=== PATIENT | female | born 1985 | race Hispanic/Latino ===

== ENCOUNTER 2020-09-18 16:20 | Outpatient (CLI) | payer BC | END 2020-09-18 16:21 | disposition home or self-care (01) | LOC: CSHLAB 16:20 | PROVIDERS: ATTEND Obstetrics & Gynecology | DX: Z01.812 Encounter for preprocedural laboratory examination (principal); Z20.822 Contact with and (suspected) exposure to COVID-19; N92.0 Excessive and frequent menstruation with regular cycle; Z80.41 Family history of malignant neoplasm of ovary | CPT/HCPCS: 84703; 85027; 86850; 86900; 86901; 87635; U0003; U0005 ==

== ENCOUNTER 2020-09-18 16:30 | Inpatient (IN) | payer BC ==
[2020-09-18 17:12] LABS: Hemoglobin 11.9 g/dL (12.0-15.5); Mean Corpuscular HGB CONC 32.1 g/dL (32.0-36.0); Mean Corpuscular Hemoglobin 27.9 pg (27.0-33.0); Mean Corpuscular Volume 87.1 fl (81.6-98.3); Mean Platelet Volume 9.6 fl (7.4-10.4); Platelet Count 354 10x3/uL (150-450); RBC Distribution Width 12.8 % (11.5-14.5); Red Blood Cell (RBC) Count 4.26 10x6/uL (3.90-5.03); White Blood Cell (WBC) Count 7.8 10x3/uL (3.5-10.5)
[2020-09-18 17:18] LABS: BHCG - Serum Negative (NEGATIVE); Pregs Control Background? CLEAR/WHITE (CLR/WHITE); Pregs Control Bar Appear? YES (CONTROL BAR)
[2020-09-19 04:29] LABS: SARS-CoV-2 PCR by NAA Not Detected (NotDetected)
[2020-09-19 14:54] VITALS: BMI 32.1
[2020-09-23] MEDS ORDERED: Gabapentin 300 MG CAP ONE (08:29)
[2020-09-23] MEDS ORDERED: CeleCOXIB 100 MG CAP ONE (08:29)
[2020-09-23] MEDS ORDERED: Famotidine/PF 20 mg/2ml Vial ONE (08:29)
[2020-09-23] MEDS ORDERED: Scopolamine 1.5 mg/72 hour Patch ONE (09:25)
[2020-09-23] MEDS ORDERED: Ondansetron PF 4 MG/2 ML Vial ONE (09:25)
[2020-09-23] MEDS ORDERED: Bupivacaine PF 0.5% 30 ML VIAL ONE (10:12)
[2020-09-23] MEDS ORDERED: EPINEPHrine 1 MG/ML AMP ONE (10:13)
[2020-09-23] MEDS ORDERED: SUGAMMADEX SODIUM 500 MG/5 ML VIAL ONE (10:27)
[2020-09-23] MEDS ORDERED: Fentanyl 100 MCG/2 ML VIAL ONE ×4 (10:32→13:24)
[2020-09-23] MEDS ORDERED: PROPOFOL 20 ML ONE ×2 (10:32→10:59)
[2020-09-23] MEDS ORDERED: Rocuronium Bromide 10 MG/ML (10ML VIAL) ONE (10:33)
[2020-09-23] MEDS ORDERED: Lidocaine 1% PF 5 ML VIAL ONE (10:33)
[2020-09-23] MEDS ORDERED: Promethazine HCl 25 MG/ML VIAL SLOW IVP PRN (12:50)
[2020-09-23] MEDS ORDERED: HYDROmorphone 2 MG/ML VIAL SLOW IVP PRN (12:50)
[2020-09-23] MEDS ORDERED: Promethazine HCl 25 MG/ML VIAL IM PRN (12:50)
[2020-09-23] MEDS ORDERED: Meperidine HCl/PF 25 MG/ML VIAL SLOW IVP PRN (12:50)
[2020-09-23] MEDS ORDERED: HYDROmorphone 0.5 MG/0.5 ML SYRINGE ONE ×2 (13:57→14:09)
[2020-09-23] MEDS ORDERED: Simethicone Chewable 80 MG TAB PO PRN (15:46)
[2020-09-23] MEDS ORDERED: diphenhydrAMINE 25 MG CAP PO PRN (15:46)
[2020-09-23] MEDS ORDERED: Zolpidem Tartrate 5 MG TAB PO PRN (15:46)
[2020-09-23] MEDS ORDERED: Bisacodyl 10 MG SUPP PR PRN (15:46)
[2020-09-23] MEDS: Ketorolac Tromethamine 30 MG/ML VIAL IVP SCH ×2 (15:59→22:09)
[2020-09-23] MEDS ORDERED: HYDROmorphone HCL/PF 10 MG in Sodium Chloride 0.9% 49 ML IVPB PRN (16:01)
[2020-09-23] MEDS: Simethicone Chewable 80 MG TAB PO PRN (22:11)
[2020-09-23] MEDS: Sodium Chloride 0.9% 1,000 ML IV SCH (23:46)
[2020-09-23] MEDS: Gabapentin 300 MG CAP PO SCH (23:46)
[2020-09-24] MEDS: Ketorolac Tromethamine 30 MG/ML VIAL IVP SCH ×4 (03:26→22:03)
[2020-09-24] MEDS: Ondansetron PF 4 MG/2 ML Vial IVP PRN ×3 (03:26→22:10)
[2020-09-24] MEDS: Sodium Chloride 0.9% 1,000 ML IV SCH ×3 (03:33→17:27)
[2020-09-24 05:03] LABS: Hemoglobin 10.3 g/dL (12.0-15.5); Mean Corpuscular HGB CONC 32.3 g/dL (32.0-36.0); Mean Corpuscular Hemoglobin 28.2 pg (27.0-33.0); Mean Corpuscular Volume 87.4 fl (81.6-98.3); Mean Platelet Volume 9.4 fl (7.4-10.4); Platelet Count 333 10x3/uL (150-450); RBC Distribution Width 12.6 % (11.5-14.5); Red Blood Cell (RBC) Count 3.65 10x6/uL (3.90-5.03); White Blood Cell (WBC) Count 10.1 10x3/uL (3.5-10.5)
[2020-09-24] MEDS: Simethicone Chewable 80 MG TAB PO PRN ×3 (08:58→22:02)
[2020-09-24] MEDS: Gabapentin 300 MG CAP PO SCH ×2 (09:06→20:57)
[2020-09-24] MEDS ORDERED: HYDROcodone/Acetaminophen 5/325 mg Tablet PO PRN (14:39)
[2020-09-24] MEDS: HYDROcodone/Acetaminophen 5/325 mg Tablet PO PRN ×2 (15:36→20:56)
[2020-09-24] MEDS ORDERED: traZODone HCl 50 MG TAB PO PRN (22:00)
[2020-09-25] MEDS: HYDROcodone/Acetaminophen 5/325 mg Tablet PO PRN ×5 (01:09→22:46)
[2020-09-25] MEDS: Sodium Chloride 0.9% 1,000 ML IV SCH ×5 (01:10→22:14)
[2020-09-25] MEDS: Ketorolac Tromethamine 30 MG/ML VIAL IVP SCH ×4 (04:29→22:48)
[2020-09-25] MEDS: Ondansetron PF 4 MG/2 ML Vial IVP PRN ×2 (04:44→18:03)
[2020-09-25] MEDS: Simethicone Chewable 80 MG TAB PO PRN (06:33)
[2020-09-25] MEDS: Gabapentin 300 MG CAP PO SCH ×2 (09:16→22:06)
[2020-09-25] MEDS ORDERED: Bisacodyl 10 MG SUPP PR PRN (17:18)
[2020-09-25] MEDS ORDERED: Tamsulosin HCl 0.4 MG CAP PO SCH (17:30)
[2020-09-25] MEDS ORDERED: Ibuprofen 600 MG TAB PO PRN (22:57)
[2020-09-26] MEDS: Ondansetron PF 4 MG/2 ML Vial IVP PRN (00:18)
[2020-09-26] MEDS: Sodium Chloride 0.9% 1,000 ML IV SCH ×2 (03:27→07:59)
[2020-09-26 07:10] LABS: Anion Gap 9 mmol/L (10-20); BUN (Urea Nitrogen) 8 mg/dL (7.0-18.7); Calc. Creatinine Clearance 210 mL/min (70-130); Calcium 8.1 mg/dL (7.8-10.44); Carbon Dioxide 27 mmol/L (22-29); Chloride 108 mmol/L (98-107); Glucose 91 mg/dL (70-105); Potassium 4.1 mmol/L (3.5-5.1); Sodium 140 mmol/L (136-145)
[2020-09-26 07:28] LABS: #Eosinphils 0.2 10x3/uL (0.0-0.5); #Monocytes 0.6 10x3/uL (0.0-1.1); #Neutrophils 4.5 10x3/uL (1.5-8.4); %Basophils 0.4 % (0.0-2.0); %Eosinophils 2.9 % (0.0-6.0); %Lymphocytes 32.6 % (18.0-47.0); %Neutrophils 56.7 % (40.0-75.0); Hemoglobin 10.1 g/dL (12.0-15.5); Mean Corpuscular HGB CONC 31.4 g/dL (32.0-36.0); Mean Corpuscular Hemoglobin 27.9 pg (27.0-33.0); Mean Platelet Volume 9.9 fl (7.4-10.4); Platelet Count 322 10x3/uL (150-450); RBC Distribution Width 13.1 % (11.5-14.5); Red Blood Cell (RBC) Count 3.62 10x6/uL (3.90-5.03); White Blood Cell (WBC) Count 7.9 10x3/uL (3.5-10.5)
[2020-09-26] MEDS: Gabapentin 300 MG CAP PO SCH (07:59)
[2020-09-26 08:16] VITALS: BP 106/61; TEMP 98.9
[2020-09-26] MEDS ORDERED: Tamsulosin HCl 0.4 MG CAP PO SCH (09:00)
[2020-09-26] MEDS: Simethicone Chewable 80 MG TAB PO PRN (10:24)
== END 2020-09-26 11:32 | disposition home or self-care (01) | DRG 743 ==
LOC: CSHTELE 09-23 08:37 → CSHPP 09-23 14:51
PROVIDERS: ADMIT Obstetrics & Gynecology; ATTEND Obstetrics & Gynecology
PROC: 0UT90ZZ Resection of Uterus, Open Approach (ICD-10-PCS; principal; 2020-09-23)
PROC: 0UB70ZZ Excision of Bilateral Fallopian Tubes, Open Approach (ICD-10-PCS; 2020-09-23)
DX: N80.0 Endometriosis of uterus (principal); N92.0 Excessive and frequent menstruation with regular cycle; R33.9 Retention of urine, unspecified; Z80.41 Family history of malignant neoplasm of ovary; Z90.49 Acquired absence of other specified parts of digestive tract; Z98.51 Tubal ligation status
CPT/HCPCS: 36415; 51600; 74430; 80048; 84703; 85025; 85027; 86850; 86900; 86901; 87635; 88307; J0171; J0690; J1170; J1885; J2405; J2704; J3010; S0020; S0028; U0003; U0005

== ENCOUNTER 2020-10-11 00:31 | Emergency (ER) | payer BC ==
[2020-10-11] MEDS ORDERED: Bacitracin 1 PK ONE (00:55)
== END 2020-10-11 01:05 | disposition home or self-care (01) ==
LOC: CSHERS 00:31
DX: T81.30XA Disruption of wound, unspecified, initial encounter (principal)
CPT/HCPCS: 99282